=== PATIENT | female | born 1945 | race Caucasian/White ===

== ENCOUNTER 2018-02-10 07:22 | Emergency (ER) | payer OTHER ==
[~2018-02-10] VITALS: Ht 162.6 cm; Wt 65.8 kg
[~2018-02-10 07:22] MED LIST: AFRIN15 ML NASAL; AMLODIPINE BESY10 MG PO; ASPIRIN EC325 M1 PO; ASPIRIN325 PO; ATENOLOL 100MG100 M2 PO; ATENOLOL-CHLOR1 EAC2 PO; BENADRYL ALLERG25 MG PO; CARVEDILOL12.5 MG PO; COREG25 MG PO; DIPHEDRYL25 M2 PO; HYDROCHLOROTH12.5 M1 PO; K-DUR 20 MEQ T20 MEQ PO; KLOR-CON 10 ER10 MEQ PO; KLOR-CON M2020 MEQ PO; LISINOPRIL20 MG PO; MEDROLDOSEPACK PO; MOBIC15 MG PO; NORCO 5-325 TA1 EACH PO; NORVASC5 MG PO; PREDNISONE 10 M10 MG; SLOW-MAG64 MG PO; ZESTORETIC 20-1 EAC2 PO
[2018-02-10] MEDS ORDERED: PREDNISONE 20 M20 MG PO (07:56)
== END 2018-02-10 08:17 | disposition home or self-care (01) ==
LOC: ER 07:22
DX: L50.9 Urticaria, unspecified (principal); I10 Essential (primary) hypertension; E78.00 Pure hypercholesterolemia, unspecified; Z90.710 Acquired absence of both cervix and uterus

== ENCOUNTER 2019-02-15 06:21 | Emergency (ER) | payer OTHER ==
[~2019-02-15] VITALS: Ht 170.2 cm; Wt 63.5 kg
[~2019-02-15 06:21] MED LIST changes: +PREDNISONE 20 M20 MG PO
[2019-02-15 07:05] LABS: ABSOLUTE NEUTROPHILS 2.6 thou/uL (1.4-8.2); BASOPHILS 0.9 % (0.0-2.0); EOSINOPHILS 5.1 % (0.0-3.0); HEMATOCRIT 42.2 % (37.0-47.0); HEMOGLOBIN 14.5 gm/dL (12.0-15.0); LYMPHOCYTES 37.9 % (24.0-44.0); MCH 30.6 pg (26.0-34.0); MCHC 34.3 g/dL (28.0-37.0); MCV 89.3 fL (80.0-100.0); MONOCYTES 7.5 % (1.0-8.0); PLATELET COUNT 218 thou/uL (150-400); POLYS 48.6 % (36.0-66.0); RBC 4.72 mil/uL (4.20-5.00); WBC 5.3 thou/uL (4.0-11.0)
[2019-02-15 07:12] LABS: ANION GAP 16 mmol/L (7-16); BUN 11 mg/dL (7-18); CALCIUM 9.4 mg/dL (8.5-10.1); CHLORIDE 98 mmol/L (98-107); CO2 23 mmol/L (21-32); CREATININE 0.8 mg/dL (0.6-1.0); GLUCOSE 127 mg/dL (74-106); POTASSIUM 3.6 mmol/L (3.5-5.1); SODIUM 137 mmol/L (136-145)
[2019-02-15 07:21] LABS: TROPONIN-I <0.06 ng/mL (<0.06)
[2019-02-15 09:00] LABS: URINE BILIRUBIN NEGATIVE (Negative); URINE BLOOD NEGATIVE (Negative); URINE CLARITY CLEAR; URINE COLOR YELLOW; URINE GLUCOSE-RANDOM* NEGATIVE (Negative); URINE KETONES NEGATIVE (Negative); URINE LEUKOCYTES-REFLEX NEGATIVE (Negative); URINE NITRITE-REFLEX NEGATIVE (Negative); URINE PROTEIN (DIPSTICK) NEGATIVE (Negative); URINE SPECIFIC GRAVITY <= 1.005 (1.005-1.035); URINE UROBILINOGEN 0.2 E.U./dl (0.2-1.0)
[2019-02-15] MEDS ORDERED: PREDNISONE 20 M20 MG PO (09:48)
[2019-02-15 10:10] VITALS: BP 189/79
--- NOTE | 2019-02-17 22:27 | EKG ---
[address] [address] ELECTROCARDIOGRAM REPORT Name: JESUS COLLINS Room #: [facility]P [facility]ITALRoberto[facility]to#: [id number] ������������������ Admission: 02/15/19 ������������������ Attend Phys: Discharge: 02/15/19 ������������������ Date of : 49 Report #: [id number] ����������������������������������������������������������������� [id number] THIS REPORT FOR: //name// [facility] [place], [place] ED Test Date: 2019-02-15 Test Time: 07:28:58 Pat Name: JESUS COLLINS Department: Room: Gender: F [employer]: ELVA : 1945 Requested By: Terell Gayle Order Number: [id number] MD: Scott Chang Measurements Intervals [place] Rate: 88 P: 51 [place]: 224 QRS: 13 QRSD: 101 T: 26 QT: 378 QTc: 458 Interpretive Statements Sinus rhythm Prolonged [place] interval Left ventricular hypertrophy Compared to ECG 09/09/2015 15:18:27 First degree AV block now present Left ventricular hypertrophy now present Electronically Signed On 02-17-2019 22:27:37 CDT by Scott Chang [email or web address] ��������������������������������������������� <ELECTRONICALLY SIGNED> ���������������������������������������� By: Scott Chang MD ��������������������������������������������� 02/17/197 7 7 Scott Chang MD /MEERA
== END 2019-02-15 10:10 | disposition home or self-care (01) ==
LOC: ER 06:21
PROVIDERS: Emergency Medicine
DX: L50.9 Urticaria, unspecified (principal); I10 Essential (primary) hypertension; R53.1 Weakness; E78.00 Pure hypercholesterolemia, unspecified; Z90.710 Acquired absence of both cervix and uterus; Z88.8 Allergy status to other drugs, medicaments and biological substances; Z91.041 Radiographic dye allergy status